=== PATIENT | female | born 1965 | race Two or more races ===

== ENCOUNTER 2017-04-17 19:52 | Emergency (ER) | payer MEDICAID, OTHER ==
[~2017-04-17] VITALS: Ht 167.6 cm; Wt 65.8 kg
[2017-04-17] MEDS ORDERED: ONDANSETRON ODT 4 MG TAB.RAPDIS SL ONE (20:15)
[2017-04-17 20:30] LABS: BASOPHILS # (AUTO) 0.1 K/uL (0.0-8.0); BASOPHILS % (AUTO) 0.5 % (0.0-2.0); EOSINOPHILS # (AUTO) 0.3 K/uL (0.0-0.7); EOSINOPHILS % (AUTO) 2.3 % (0.0-7.0); HEMOGLOBIN 13.9 g/dL (10.9-14.3); LYMPHOCYTES # (AUTO) 2.3 K/uL (20.0-40.0); LYMPHOCYTES % (AUTO) 20.8 % (20.5-51.5); MEAN CORPUSCULAR HGB CONC 35 g/dL (32.3-35.6); MEAN CORPUSCULAR VOLUME 92.2 fL (75.5-95.3); MONOCYTES # (AUTO) 0.6 K/uL (2.0-10.0); MONOCYTES % (AUTO) 4.9 % (0.0-11.0); NEUTROPHILS % (AUTO) 71.5 % (38.5-71.5); PLATELET COUNT (AUTO) 261 K/uL (179-408); RED BLOOD CELL COUNT(AUTO) 4.34 MIL/uL (3.63-4.92); WHITE BLOOD COUNT (AUTO) 11.2 K/uL (3.8-11.8)
[2017-04-17 20:38] LABS: CREATININE 0.8 mg/dL (0.6-1.3); POTASSIUM 3.6 mmol/L (3.5-5.1)
--- NOTE | 2017-04-17 20:41 | NUR ---
PATIENT BROUGHT IN BY RESCUE FROM HOME FOR C/O NAUSEA X1HRS WITH DIZZINESS. DENIES CP,SOB
[2017-04-17] MEDS ORDERED: ONDANSETRON ODT 4 MG TAB.RAPDIS ONE (20:44)
--- NOTE | 2017-04-17 20:55 | NUR ---
PATIENT DIZZINESS AND NAUSEA IMPROVED
[2017-04-17 21:12] VITALS: BP 115/66
--- NOTE | 2017-04-17 21:12 | NUR ---
Patient discharged to home in stable conditon WITH TAKING PATIENT. Written and verbal after care instructions given. Patient verbalizes understanding of instructions. WALKED OUT ER WITH STEADY GAIT
== END 2017-04-17 21:14 | disposition home or self-care (01) ==
LOC: ER 19:54
DX: R42 Dizziness and giddiness (principal); I47.1 Supraventricular tachycardia; R11.0 Nausea
CPT/HCPCS: 36415; 70030-TC; 85025; 85730; 93005; A4663; Q0162